=== PATIENT | male | born 1975 | race Caucasian/White ===

== ENCOUNTER 2019-05-04 19:31 | Emergency (ER) | payer SELFPAY ==
[~2019-05-04] VITALS: Ht 165.1 cm; Wt 90.7 kg
[2019-05-04 19:31] VITALS: BP 123/85
--- NOTE | 2019-05-04 19:34 | NUR ---
TO LOBBY A/W BED, AMBULATORY
--- NOTE | 2019-05-04 19:56 | NUR ---
PT AMBULATED TO BED 06.
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
[2019-05-04] MEDS ORDERED: KETOROLAC 30 MG/ML VIAL IM ONE (20:35)
--- NOTE | 2019-05-04 20:58 | NUR ---
PT TAKEN TO XRAY
[2019-05-04 22:15] VITALS: BP 137/79
== END 2019-05-04 22:15 | disposition home or self-care (01) ==
LOC: MED 19:31
DX: S39.012A Strain of muscle, fascia and tendon of lower back, initial encounter (principal); S90.32XA Contusion of left foot, initial encounter; M25.562 Pain in left knee; V43.62XA Car passenger injured in collision with other type car in traffic accident, initial encounter; Y93.89 Activity, other specified; Y92.488 Other paved roadways as the place of occurrence of the external cause; Y99.8 Other external cause status
CPT/HCPCS: 72100; 73630; 96372; 99283; J1885

== ENCOUNTER 2023-11-08 15:53 | Emergency (ER) | payer OTHER ==
[~2023-11-08] VITALS: Ht 165.1 cm; Wt 95.3 kg
[2023-11-08 15:55] VITALS: BP 120/62; PULSE 99; RESP 18; TEMP 98.1
[2023-11-08] MEDS ORDERED: KETOROLAC 30 MG/ML VIAL IM ONE (16:10)
[2023-11-08] MEDS ORDERED: LIDOCAINE MPF 1% 10 MG/ML VIAL INJ ONE (16:25)
[2023-11-08] MEDS ORDERED: CEPH-588 PO (17:20)
[2023-11-08] MEDS ORDERED: BACITRACIN OINT 500 UNITS/GM PKT TP ONE (17:20)
[2023-11-08] MEDS ORDERED: BACI-418 TP (17:20)
[2023-11-08 17:45] VITALS: BP 130/80; PULSE 78; RESP 20; TEMP 98.2; O2SAT 98
== END 2023-11-08 17:49 | disposition home or self-care (01) ==
LOC: MED 15:53
DX: S61.412A Laceration without foreign body of left hand, initial encounter (principal); E11.9 Type 2 diabetes mellitus without complications; I10 Essential (primary) hypertension; Z79.4 Long term (current) use of insulin; Z79.899 Other long term (current) drug therapy; W26.8XXA Contact with other sharp object(s), not elsewhere classified, initial encounter; Y93.89 Activity, other specified; Y92.89 Other specified places as the place of occurrence of the external cause; Y99.8 Other external cause status
CPT/HCPCS: 12002; 73130; 90471; 90715; 96372; 99284; J1885; J2001

== ENCOUNTER 2023-11-10 11:59 | Emergency (ER) | payer OTHER ==
[~2023-11-10] VITALS: Ht 152.4 cm; Wt 72.6 kg
[~2023-11-10 11:59] MED LIST: BACI-418 TP; CEPH-588 PO
[2023-11-10 12:19] VITALS: BP 142/96; PULSE 105; RESP 20; TEMP 97; O2SAT 98
[2023-11-10 13:25] VITALS: BP 135/88; PULSE 88; RESP 16; TEMP 98; O2SAT 99
== END 2023-11-10 13:25 | disposition home or self-care (01) ==
LOC: MED 11:59
DX: S61.211D Laceration without foreign body of left index finger without damage to nail, subsequent encounter (principal); S61.213D Laceration without foreign body of left middle finger without damage to nail, subsequent encounter; Z48.00 Encounter for change or removal of nonsurgical wound dressing; X58.XXXD Exposure to other specified factors, subsequent encounter
CPT/HCPCS: 99281